=== PATIENT | male | born 2000 | race Caucasian/White ===

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

== ENCOUNTER 2022-07-03 15:16 | Emergency (ER) | payer MEDICAID ==
[~2022-07-03] VITALS: Ht 177.8 cm; Wt 80.0 kg
[2022-07-03 15:39] VITALS: BP 141/81
== END 2022-07-03 17:14 | disposition left against medical advice (07) ==
LOC: ER 15:16
DX: Z53.21 Procedure and treatment not carried out due to patient leaving prior to being seen by health care provider (principal)